=== PATIENT | female | born 1970 | race Two or more races ===

== ENCOUNTER 2024-03-29 20:12 | Emergency (ER) | payer OTHER ==
[~2024-03-29] VITALS: Ht 157.5 cm; Wt 81.7 kg
[2024-03-29 20:52] LABS: Urine Bacteria FEW /hpf (None Seen); Urine Blood 3+ /uL (Negative); Urine Clarity Turbid (Clear); Urine Color Yellow (Yellow); Urine Mucus FEW (None Seen); Urine Protein, UAD TRACE (Negative); Urine Specific Gravity 1.026 (1.001-1.035); Urine Squamous Epithelial Cell FEW /hpf (<5); Urine Urobilinogen Normal (Negative); Urine WBC 3 /HPF (0-5); Urine pH 5.5 (5.0-9.0)
--- NOTE | 2024-03-29 21:02 | DVH ---
Exam: CT CT AB PEL WO CON-NO ORAL OR IV History: R Flank Pain Comparison Study: None available at time of dictation. TECHNIQUE: Multidetector CT of the abdomen was performed from lung bases to pubic symphysis. Imaging was performed without IV contrast. Axial, coronal and sagittal multiplanar reformats were obtained fr om the axial data set by the technologist. Radiation Dose Information: CT Dose: CTDI volume is 12.67 mGy. Dose-length product is 713.55 mGy*cm FINDINGS: Evaluation of solid organs is limited due to lack of intravenous contrast use. Findings: Lung Bases: No acute or significant lung base finding. Normal heart size. No pleural or pericardial effusion. Liver: The liver is normal in size. No focal lesions. Gallbladder and Biliary Tree: Gallbladder has been surgically removed. Spleen: Unremarkable Pancreas: The pancreas is grossly normal in appearance. Adrenal Glands: Unremarkable Kidneys: Punctate nonobstructing calculus right kidney Bladder: Grossly unremarkable for degree of distention. Bowel: The stomach is grossly normal in appearance. Small bowel and colon are normal in caliber and d istribution. The appendix is not visualized; however, no secondary findings of acute appendicitis id entified. Ascites: Absent Lymphadenopathy: No mesenteric, retroperitoneal or periportal lymphadenopathy. Abdominal Wall and Mesentery: Unremarkable. Vasculature: The visualized abdominal aorta is normal in size and caliber. Evaluation of abdominal a nd pelvic vessels is limited due to lack of intravenous contrast. Pelvic Organs: Mass adjacent to the uterus on the right may represent ovary or subserosal fibroid. Re commend pelvic ultrasound to help distinguish subserosal fibroid from prominent ovary. Musculoskeletal: No aggressive focal bony lesions, acute fractures or dislocation. Soft tissues: Unremarkable IMPRESSION: 1. Punctate nonobstructing calculus right kidney 2. 3.4 cm soft tissue mass adjacent to uterus on the right inseparable from the uterus. This may repr esent a fibroid or prominent ovary. Radiation optimization: All CT scans at this facility use at least one of these dose optimization te chniques: automated exposure control mA and/or kV adjustment per patient size (includes targeted exa ms where dose is matched to clinical indication) or iterative reconstruction.
[2024-03-29 21:18] LABS: Basophils # (auto) 0 10 ^3/uL (0-0.2); Basophils % (auto) 0.4 % (0.0-2.0); Eosinophils # (auto) 0.2 10 ^3/uL (0-0.8); Eosinophils % (auto) 2.1 % (0.0-7.0); Hematocrit 44.3 % (36.0-46.0); Hemoglobin 15.1 g/dL (12.2-16.2); Lymphocytes # (auto) 1.6 10 ^3/uL (0.4-5.4); Lymphocytes % (auto) 20.2 % (10.0-50.0); Mean Corpuscular Hemoglobin 32.4 pg (28.0-32.0); Mean Corpuscular Hgb Conc. 34.1 g/dL (32.0-36.0); Monocytes # (auto) 0.5 10 ^3/uL (0-1.3); Monocytes % (auto) 6.5 % (0.0-12.0); Neutrophils # (auto) 5.4 10 ^3/uL (1.6-8.6); Neutrophils % (auto) 70.8 % (37.0-80.0); Platelet Count (auto) 340 10^3/uL (140-450); Red Blood Cells 4.66 10^6/uL (4.0-5.20); Red Cell Distribution Width 13.4 % (11.8-14.3); White Blood Cell 7.7 10^3/uL (4.4-10.8)
[2024-03-29 21:26] LABS: Alanine Aminotransferase 36 U/L (7-40); Albumin 4.8 g/dL (3.2-4.8); Alkaline Phosphatase 89 U/L (46-116); Anion Gap 11 (5-15); Aspartate Aminotransferase 24 U/L (13-40); BUN/Creatinine Ratio 11.2 (10.0-20.0); Bilirubin, Total 0.7 mg/dL (0.2-1.0); Blood Urea Nitrogen 12 mg/dL (9-23); Calcium 10.2 mg/dL (8.7-10.4); Carbon Dioxide 23 mmol/L (20-31); Chloride 106 mmol/L (98-107); Potassium 3.5 mmol/L (3.5-5.1); Sodium 140 mmol/L (136-145); Total Protein 7.1 g/dL (5.7-8.2)
[2024-03-29 21:27] LABS: Glucose 125 mg/dL (74-106)
--- NOTE | 2024-03-29 21:31 | ED.PDOC ---
History of Present Illness HPI Comments 53 y/o F, with a Hx of asthma, obesity, and cholecystectomy, presents with spouse for c/o right-sided flank and back pain, nausea, vomiting, and dysuria, today. Patient is a Cam[place]onian speaker and, per spouse, who is translating on her behalf, she endorses on having "burning" pain whenever she urinates for 1x week, with additional unprovoked onset of remaining symptoms, this morning. Patient's pain is commented to be a 8/10 in severity, currently, and originates from her right flank prior to then wrapping around to her right-lower back region. Patient has reported history of kidney stones, recent injuries or strenuous activities, or other additional relevant information. Patient denies having any fever, chills, abdominal pain, hematemesis, or other associated symptoms or modifiers at this time. Chief Complaint: Flank Pain Time Seen by MD: 20:40 Reviewed Notes: Nurses Notes, Medications, Allergies Allergies: Coded Allergies: NO KNOWN ALLERGIES (Unverified , 03/29/24) Information Source: Patient, Spouse Mode of Arrival: Ambulatory Severity: Moderate Timing: Days Duration: Since onset Prehospital treatment: None Review of Systems: REVIEW OF SYSTEMS: No fever, no chills, or fatigue HEENT: No sore throat, no earache, no congestion, no neck pain. Cardiac: No chest pain. No palpitations. Lungs: No shortness of breath, no cough. GI: Nausea, vomiting, no diarrhea, no constipation, no abdominal pain : Right-flank pain, dysuria, frequency, or urgency. No hematuria. Musculoskeletal: Right-back pain, no joint pain , no joint swelling, no extremity edema. Skin: No rash, no itching. Neuro: No headache, no dizziness, no weakness Vital Signs Vital Signs Date Time Temp Pulse Resp B/P (MAP) Pulse Ox O2 Delivery O2 Flow Rate FiO2 03/29/24 23:40 85 22 104/72 03/29/24 23:34 96 Room Air* 0 21 03/29/24 23:05 98.1 98.1 Physical Exam General: Awake, alert and oriented. No acute distress. Skin: Skin in warm, dry and intact. Appropriate color for ethnicity. HEENT: The head is normocephalic and atraumatic. Conjunctivae are clear without exudates or hemorrhage. Sclera is non-icteric. EOM are intact. No signs of nystagmus. Eyelids are normal in appearance without swelling or lesions. Oral mucosa is pink and moist Neck: The neck is supple with normal range of motion. No JVD. Cardiac: Heart rate and rhythm are normal. No murmurs, gallops, or rubs are auscultated. Respiratory: No signs of respiratory distress. Lung sounds are clear in all lobes bilaterally without rales, ronchi, or wheezes. Musculoskeletal: Right-sided CVA and flank tenderness Abdominal: Abdomen is soft, non-tender without distention. Bowel sounds are present and normoactive in all four quadrants. Extremities: Upper and lower extremities are atraumatic in appearance without deformity or edema. Neurological: The patient is awake, alert and oriented to person, place, and time with normal speech. Speech is clear. There is no facial asymmetry. Psychiatric: Appropriate mood and affect. Good judgement and insight. No visual or auditory hallucinations. Past Medical History PAST MEDICAL HISTORY: Asthma Past Medical History (Other): obesity Surgical History: Cholecystectomy Was a procedure done? Was a procedure done?: No Differential Dx Considerations may include: nephrolithiasis, pyelonephritis, cystitis, ovarian cysts, ovarian torsion, musculoskeletal pain, sprain X-Ray, Labs, Meds, VS Vital Signs Date Time Temp Pulse Resp B/P (MAP) Pulse Ox O2 Delivery O2 Flow Rate FiO2 03/29/24 23:40 85 22 104/72 03/29/24 23:34 88 20 96 Room Air* 0 21 03/29/24 23:10 90 22 114/84 03/29/24 23:05 98.1 94 22 114/84 (94) 96 98.1 03/29/24 20:12 98.2 100 20 120/90 (100) 100 Lab Test 03/29/24 21:00 03/29/24 20:27 Range/Units White Blood Count 7.7 4.4-10.8 10^3/uL Red Blood Count 4.66 4.0-5.20 10^6/uL Hemoglobin 15.1 12.2-16.2 g/dL Hematocrit 44.3 36.0-46.0 % Mean Corpuscular Volume 95.0 80.0-100.0 fL Mean Corpuscular Hemoglobin 32.4 H 28.0-32.0 pg Mean Corpuscular Hemoglobin Concent 34.1 32.0-36.0 g/dL Red Cell Distribution Width 13.4 11.8-14.3 % Platelet Count 340 140-450 10^3/uL Mean Platelet Volume 8.2 6.9-10.8 fL Neutrophils (%) (Auto) 70.8 37.0-80.0 % Lymphocytes (%) (Auto) 20.2 10.0-50.0 % Monocytes (%) (Auto) 6.5 0.0-12.0 % Eosinophils (%) (Auto) 2.1 0.0-7.0 % Basophils (%) (Auto) 0.4 0.0-2.0 % Neutrophils # (Auto) 5.4 1.6-8.6 10 ^3/uL Lymphocytes # (Auto) 1.6 0.4-5.4 10 ^3/uL Monocytes # (Auto) 0.5 0-1.3 10 ^3/uL Eosinophils # (Auto) 0.2 0-0.8 10 ^3/uL Basophils # (Auto) 0 0-0.2 10 ^3/uL Nucleated Red Blood Cells 0.0 % Sodium Level 140 136-145 mmol/L Potassium Level 3.5 3.5-5.1 mmol/L Chloride Level 106 98-107 mmol/L Carbon Dioxide Level 23 20-31 mmol/L Anion Gap 11 5-15 Blood Urea Nitrogen 12 9-23 mg/dL Creatinine 1.07 H 0.550-1.02 mg/dL Glomerular Filtration Rate Calc 62 >90 mL/min BUN/Creatinine Ratio 11.2 10.0-20.0 Serum Glucose 125 H 74-106 mg/dL Calcium Level 10.2 8.7-10.4 mg/dL Total Bilirubin 0.7 0.2-1.0 mg/dL Aspartate Amino Transferase (AST) 24 13-40 U/L Alanine Aminotransferase (ALT) 36 7-40 U/L Alkaline Phosphatase 89 46-116 U/L Total Protein 7.1 5.7-8.2 g/dL Albumin 4.8 3.2-4.8 g/dL Urine Color Yellow Yellow Urine Clarity Turbid H Clear Urine pH 5.5 5.0-9.0 Urine Specific [place] 1.026 1.001-1.035 Urine Protein Trace H Negative Urine Ketones Trace Negative Urine Blood 3+ H Negative /uL Urine Nitrite Negative Negative Urine Bilirubin Negative Negative Urine Urobilinogen Normal Negative mg/dL Urine Leukocyte Esterase Negative Negative /uL Urine RBC 270 0 - 4 /hpf Urine Microscopic WBC 3 0-5 /HPF Urine Squamous Epithelial Cells Few <5 /hpf Urine Bacteria Few H None Seen /hpf Urine Mucus Few None Seen Urine Glucose Normal Normal mg/dL [place] [address] Ph: [phone] DIAGNOSTIC IMAGING Diagnostic Imaging Report : [id number] Signed PATIENT: ZHAO LIU ACCT: [id number] UNIT: [id number] : 1970 LOC: ER ROOM / BED: / AGE / SEX: 53 / F ADM STATUS: REG ER SERVICE 19 ORDERING PHYSICIAN: XAVIER DIOP MD PROCEDURE(s): ABPL - CT AB PEL WO CON-NO ORAL OR IV REASON: R Flank Pain ORDER NUMBER(s): [id number], ACCESSION NUMBER(s): [id number] Exam: CT CT AB PEL WO CON-NO ORAL OR IV History: R Flank Pain Comparison Study: None available at time of dictation. TECHNIQUE: Multidetector CT of the abdomen was performed from lung bases to pubic symphysis. Imaging was performed without IV contrast. Axial, coronal and sagittal multiplanar reformats were obtained from the axial data set by the technologist. Radiation Dose Information: CT Dose: CTDI volume is 12.67 mGy. Dose-length product is 713.55 mGy*cm FINDINGS: Evaluation of solid organs is limited due to lack of intravenous contrast use. Findings: Lung Bases: No acute or significant lung base finding. Normal heart size. No pleural or pericardial effusion. Liver: The liver is normal in size. No focal lesions. Gallbladder and Biliary Tree: Gallbladder has been surgically removed. Spleen: Unremarkable Pancreas: The pancreas is grossly normal in appearance. Adrenal Glands: Unremarkable Kidneys: Punctate nonobstructing calculus right kidney Bladder: Grossly unremarkable for degree of distention. Bowel: The stomach is grossly normal in appearance. Small bowel and colon are normal in caliber and distribution. The appendix is not visualized; however, no secondary findings of acute appendicitis identified. Ascites: Absent Lymphadenopathy: No mesenteric, retroperitoneal or periportal lymphadenopathy. Abdominal Wall and Mesentery: Unremarkable. Vasculature: The visualized abdominal aorta is normal in size and caliber. Evaluation of abdominal and pelvic vessels is limited due to lack of intravenous contrast. Pelvic Organs: Mass adjacent to the uterus on the right may represent ovary or subserosal fibroid. Recommend pelvic ultrasound to help distinguish subserosal fibroid from prominent ovary. Musculoskeletal: No aggressive focal bony lesions, acute fractures or dislocation. Soft tissues: Unremarkable IMPRESSION: 1. Punctate nonobstructing calculus right kidney 2. 3.4 cm soft tissue mass adjacent to uterus on the right inseparable from the uterus. This may represent a fibroid or prominent ovary. Radiation optimization: All CT scans at this facility use at least one of these dose optimization techniques: automated exposure control mA and/or kV adjustment per patient size (includes targeted exams where dose is matched to clinical indication) or iterative reconstruction. ATED BY: ISMAEL CLEANING Jr., DO DICTATED DATE/TIME: 03/29/242099 SIGNED BY: ISMAEL CLEANING Jr., SIGNED DATE/TIME: 03/29/242099 CC: [place] [address] Ph: [phone] DIAGNOSTIC IMAGING Diagnostic Imaging Report : [id number] Signed PATIENT: ZHAO LIU ACCT: [id number] UNIT: [id number] : 1970 LOC: ER ROOM / BED: / AGE / SEX: 53 / F ADM STATUS: REG ER SERVICE 47 ORDERING PHYSICIAN: XAVIER DIOP MD PROCEDURE(s): PELUS - PELVIC REASON: Pelvic /uterine mass ORDER NUMBER(s): [id number], ACCESSION NUMBER(s): [id number] INDICATION: Pelvic /uterine mass TECHNIQUE: Multiple real-time grayscale transabdominal sonographic images along with color and duplex doppler of the uterus and ovaries were obtained. COMPARISON: None FINDINGS: The uterus measures heterogeneous echogenicity related to fibroids the largest measuring up to 2.8 cm. Endometrium measures approximately 3 mm in thickness. Nabothian cysts noted in the cervix. Neither of the ovaries could be identified. No evidence of pelvic mass or fluid collection. IMPRESSION: Uterine fibroids. Neither of the ovaries could be identified. No evidence of pelvic mass or fluid collection. ATED BY: JUSTINO BENNETT MD DICTATED DATE/TIME: 03/29/242257 SIGNED BY: JUSTINO BENNETT MD SIGNED DATE/TIME: 03/29/242257 CC: Time of 1ST Reevaluation: 21:10 Reevaluation 1ST: Unchanged Patient Education/Counseling: Diagnosis, Treatment Family Education/Counseling: Diagnosis, Treatment Departure 1 Departure Time of Disposition: 00:40 Impression: Primary Impression: Right flank pain Disposition: 01 HOME / SELF CARE / HOMELESS Condition: Stable Additional Instructions: INSTRUCCIONES DE CATARINA DE Urgencias Instrucciones: Mckenzie atentamente todas las instrucciones proporcionadas en miguel paquete. Aunque le hayan dado el catarina del Departamento de Emergencias, esto no significa que tenga un "certificado de buena gricelda". Hoy no se edward realizado ningn diagnstico definitivo para fela sntomas. Es posible que ests en proceso de desarrollar jennifer enfermedad grave. Es por eso que debe regresar al servicio de urgencias sin falta si presenta algn sntoma nuevo o que empeora (especialmente si fela sntomas incluyen dolor en el pecho, dificultad para respirar, dolor abdominal, fiebre, dolor de carolyn, confusin, dificultad para luz o caminar). Tambin es muy importante que consulte a un mdico de atencin primaria dentro de los prximos 3 a 5 westfall para realizar un seguimiento. Si no puede conseguir jennifer kumar, regrese al servicio de urgencias para jennifer nueva evaluacin. Zak un seguimiento con rosa mdico de atencin primaria sobre el siguiente hallazgo anormal en rosa tomografa computarizada: IMPRESSION: 1. Punctate nonobstructing calculus right kidney 2. 3.4 cm soft tissue mass adjacent to uterus on the right inseparable from the uterus. This may represent a fibroid or prominent ovary. Dolor abdominal: instrucciones de cuidado Imagen de los cuatro cuadrantes del abdomen. Descripcin general El dolor abdominal tiene muchas causas posibles. Algunas no son graves y mejoran por s solas en unos westfall. Otras requieren ms pruebas y tratamiento. Si el dolor contina o empeora, es necesario volver a examinarlo y es posible que necesite ms pruebas para averiguar qu es lo que est mal. Es posible que necesite jennifer ciruga para corregir el problema. No ignore los sntomas nuevos, imelda fiebre, nuseas y vmitos, problemas para orinar, dolor que empeora y mareos. Estos pueden ser signos de un problema ms grave. Si no mejora, es posible que necesite ms pruebas o tratamiento. El mdico lo edward examinado cuidadosamente, liz pueden surgir problemas ms adelante. Si nota algn problema o sntomas nuevos, busque tratamiento mdico de inmediato . El seguimiento mdico es jennifer parte fundamental de rosa tratamiento y rosa seguridad. Asegrese de programar y acudir a todas las citas, y llame a rosa mdico si tiene problemas. Tambin es jennifer buena idea saber los resultados de fela pruebas y llevar jennifer lista de los medicamentos que raimundo. Ultrasound Technologist Sonographer puedes cuidarte en casa? Descansa hasta que te sientas mejor. Para prevenir la deshidratacin, constance abundante lquido. Elija agua y otros l quidos lora hasta que se sienta mejor. Si tiene jennifer enfermedad renal, cardaca o heptica y debe limitar los lquidos, consulte con rosa mdico antes de aumentar la cantidad de lquidos que kerri. Cuando sientas ganas de comer, empieza con pequeas cantidades. No tomes alcohol, cafena ni alimentos picantes, calientes o con alto contenido de grasa rodríguez pattie o dos westfall. Evite los medicamentos antiinflamatorios imelda la aspirina, el ibuprofeno (Advil, Motrin) y el naproxeno (Aleve). Pueden causar malestar estomacal. Hable con rosa mdico si raimundo aspirina a diario por otro problema de gricelda. Cundo debes pedir ayuda? Llame al 911 en cualquier momento en que crea que puede necesitar atencin de emergencia. Por ejemplo, llame si: Te desmayaste (perdiste el conocimiento). Tiene heces de color marrn o con hema javier. Vomitas javier o lo que parecen posos de caf. Tienes un dolor intenso en el vientre. Llame a rosa mdico ahora o busque atencin mdica inmediata si: El dolor empeora, especialmente si se concentra en jennifer fish determinada del abdomen. Tiene fiebre nueva o ms catarina. Las heces son negras y parecen alquitrn, o tienen vetas de javier. Tienes sangrado vaginal inesperado. Tiene sntomas de jennifer infeccin del tracto urinario. Estos pueden incluir: Dolor al orinar. Orinar con ms frecuencia de lo habitual. Javier en la orina. Se siente mareado o aturdido, o siente que se puede desmayar. Preste atencin a los cambios en rosa gricelda y asegrese de comunicarse con rosa mdico si: No ests mejorando imelda esperabas. Crditos para el dolor abdominal: instrucciones de cuidado Actualizado al: 19 2023 Autor: Personal de Socorro BhattiLINDSAY Comments 53-year-old female who presented to the emergency department with right flank pain. CT abdomen and pelvis showed Mass adjacent to the uterus on the right may represent ovary or subserosal fibroid. Recommend pelvic ultrasound to help distinguish subserosal fibroid from prominent ovary. Extensive evaluation was performed in attempt to identify or rule out: (See differential diagnosis section) The following tests were ordered, and results were reviewed by me: (See diagnostic results section) The following test were independently interpreted by me: N/A I reviewed the following notes from the pt's past medical encounters: N/A Additional information was gathered from interviewing the following independent historians: Patient's at bedside Discussion of management or test interpretation with external physician/other qualified health district manager primary care sales: N/A Decision regarding hospitalization or escalation of hospital level of care: Risks and benefits of admission for further treatment of patient's condition was considered however due to patient's stable condition patient will be discharged to follow up closely or return to care for worsening of condition or inability to follow up. Critical Care Note Critical Care Time?: No Stability Stability form required: No Heart Score Heart Score: Heart Score Response (Comments) Value History N/A 0 EKG N/A 0 Age N/A 0 Risk Factors N/A 0 Troponin N/A 0 Total 0 I personally scribed for XAVIER DIOP MD ([email or web address]) on 03/29/24 at 21:31. Corine ctronically submitted by Nikko Vidal ([email or web address]). I personally scribed for XAVIER DIOP MD ([email or web address]) on 03/30/24 at 02:01. Electronically submitted by Nikko Vidal ([email or web address]). XAVIER DIOP MD Mar 29, 2024 21:31
--- NOTE | 2024-03-29 23:00 | DVH ---
INDICATION: Pelvic /uterine mass TECHNIQUE: Multiple real-time grayscale transabdominal sonographic images along with color and duplex doppler of the uterus and ovaries were obtained. COMPARISON: None FINDINGS: The uterus measures heterogeneous echogenicity related to fibroids the largest measuring up to 2.8 cm . Endometrium measures approximately 3 mm in thickness. Nabothian cysts noted in the cervix. Neither of the ovaries could be identified. No evidence of pelvic mass or fluid collection. IMPRESSION: Uterine fibroids. Neither of the ovaries could be identified. No evidence of pelvic mass or fluid col lection.
[2024-03-29 23:05] VITALS: TEMP 98.1
[2024-03-29] MEDS: KETOROLAC TROMETH 30 MG/ML 1ML VIAL IV ONE (23:10)
[2024-03-29] MEDS: MORPHINE SULFATE INJ 2 MG/ml SYRG IV ONE (23:10)
[2024-03-29] MEDS: ONDANSETRON HCL 4 MG/2 ML VIAL IV ONE (23:10)
[2024-03-29 23:34] VITALS: PULSE 88; RESP 20; O2SAT 96
[2024-03-29 23:40] VITALS: BP 104/72; PULSE 85; RESP 22
== END 2024-03-30 00:50 | disposition home or self-care (01) ==
LOC: ER 20:12
DX: R10.9 Unspecified abdominal pain (principal); M54.9 Dorsalgia, unspecified; R31.9 Hematuria, unspecified; E66.9 Obesity, unspecified; J45.909 Unspecified asthma, uncomplicated; Z90.49 Acquired absence of other specified parts of digestive tract
CPT/HCPCS: 36415; 74176; 76830; 76856; 80053; 81001; 85025; 96374; 96375; 99285; J1885; J2270; J2405